=== PATIENT | female | born 1945 | race Caucasian/White ===

== ENCOUNTER 2017-04-04 21:18 | Emergency (ER) | payer MEDICARE ==
[~2017-04-04] VITALS: Ht 170.2 cm; Wt 65.9 kg
[2017-04-04 21:25] VITALS: BP 148/77; PULSE 99; RESP 16; O2SAT 97
--- NOTE | 2017-04-04 22:05 | DRSVH ---
PROCEDURE: X-RAY LEFT KNEE, THREE VIEWS ([id number]) INDICATIONS: Fall/pain TECHNIQUE: 3 views of the knee were acquired. COMPARISON: None. FINDINGS: Bones: No fractures or dislocations. No suspicious bony lesions. 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 Soft tissues: No joint effusion. No suspicious soft tissue calcifications. IMPRESSION: No fracture. No acute osseous lesion. If there are persistent symptoms or clinical susp icion for pathology, then repeat radiographs or advanced imaging (CT, MRI or bone scan) should be con sidered for further evaluation. Dictated by: Odilia Patel MD, PhD on 04/04/2017 at 22:03 Approved by: Odilia Patel MD, PhD on 04/04/2017 at 22:04
--- NOTE | 2017-04-05 01:16 | ED.REPORT ---
HPI-General Illness Date of Service Apr 05, 2017 ED Provider: Brock Love MD A 71 year old female with no pertinent medical history presents to the ED complaining of left knee pain secondary to a knee injury that occurred at 1200 today. Patient reportedly tripped while on a flight of stairs and bent her left knee backwards. The throbbing pain in her knee has been constant since onset and she experiences pain when bearing weight on the affected extremity. The patient is currently expressing concern for a torn ligament/tendon. She did not fall and hit her head, denies any other injuries. She denies any head injury, LOC, nausea, vomiting, fever, chills, SOB, chest pain, or abdominal pain. Nursing Notes Stated Complaint: LEFT KNEE INJURY Chief Complaint: Extremity Trauma Nursing Notes Reviewed: Yes Allergies: Coded Allergies: iodine (Verified Allergy, Severe, Hives, 04/04/17) ether (Verified Allergy, Mild, 04/04/17) Uncoded Allergies: SULFA (Allergy, Unknown, 04/04/17) General Time Seen by MD: 00:45 Chief Complaint Other (Knee injury) Hx Obtained From: Patient Arrived By: Walk-in Sudden in Onset?: Yes Onset Occurred: 5 - 8 hours ago Symptom Duration: Since onset Caused by: Accidental Location: : Knee left Quality: Painful Radiation: : Does not radiate Severity: Maximum: Moderate Associated with: Denies: Abdominal pain, Chest pain, Fever, Headache, Nausea, Numb extremities, Shortness of breath, Vomiting, Weak extremity, Weakness Pertinent Negative: Pt denies other symptoms Exacerbated by: Moving affected area Recent Healthcare: No recent doctor visit, No recent hospitalization Past Medical History Past Medical History None reported. Past Surgical History None reported. Smoking History Unknown if Ever Smoker Social History Other Social History: Good social support, , Local resident Ambulatory Status Independent Review of Systems Full Review of Systems Constitutional: Denies: Chills, Fever Respiratory: Denies: Shortness of breath Cardiovascular: Denies: Chest pain GI: Denies: Abdominal pain, Nausea, Vomiting Musculoskeletal: Reports: Joint pain (left knee), Joint swelling (left knee) Neurologic: Denies: Change LOC, Headache, Numbness, Weakness Complete sys rev & neg: except as marked. Physical Exam General: Well appearing, no acute distress HEENT: mucous membranes moist Pulm: Speaking comfortably with unlabored respirations, no respiratory distress Card: Regular rate, good peripheral perfusion Abd: Soft, nontender, nondistended Skin: Warm and dry, no rashes or pallor appreciated Psych: Appropriate mood and affect. Behavior appears normal. Neuro: AOx3, strength and sensation to light touch grossly intact throughout. Extremities: Tenderness over the left knee. Varus and valgus stress test negative. Anterior and posterior drawer negative. Neurovascularly intact. Vital Signs Vital Signs Date Time Temp Pulse Resp B/P Pulse Ox O2 Delivery O2 Flow Rate FiO2 04/04/17 21:25 36.6 99 16 148/77 97 Room Air Interpretation & Diagnostics X-Ray Interpretation Xray Interpretation: IMPRESSION: No fracture. No acute osseous lesion. If there are persistent symptoms or clinical suspicion for pathology, then repeat radiographs or advanced imaging (CT, MRI or bone scan) should be considered for further evaluation. Dictated by: Odilia Patel MD, PhD on 04/04/2017 at 22:03 X-Ray Ordered: Knee left Interpretation / Wet Read by: Interpret - Radiologist Re-Eval/Medical Decision Med Decision/Clinical Course 71-year-old female presenting for evaluation of left knee pain after injuring it while losing her balance on the stairs earlier today. No other injuries. X- ray negative for fracture. Neurovascular exam intact, including distal to the injury. No significant tenderness with varus or valgus stress, negative anterior and posterior drawer tests. Joint seems to be stable at this time. Reasonable to discharge home with careful return precautions, knee immobilizer, and PCP follow-up. Patient agreeable to the plan as stated, no further questions. Time of Eval: 01:22 Patient Status: Condition improved Re-Evaluation/Progress Note: Patient is re-evaluated. All questions about the treatment plan are addressed. She agrees to follow up with her PCP for further evaluation this week. Patient is agreeable to discharge at this time. Counseled Regarding: Diagnosis, Need for follow-up, When/why to return to ED Discharge & Departure Primary Impression: Knee injury Encounter type: initial encounter Laterality: left Qualified Code: S89.92XA - Unspecified injury of left lower leg, initial encounter Disposition: Home Discharge Condition Condition: Improved Patient Instructions: Knee Sprain (ED) Additional Instructions: Thank you for trusting us with your care this evening. Your X-ray was negative for fracture and your results are reassuring that there is no acute/emergent cause for concern at this time. Your pain should resolve within the next few weeks or so. Please schedule a follow up appointment with your primary care physician in the next 2-3 for a recheck and possible MRI scan. Make sure to keep the leg elevated to prevent swelling. Use ice intermittently every 3 hours to help prevent swelling. Keep the knee immbolized in the brace until you are able to follow-up. Take 1-2 200mg of ibuprofen every 6-8 hours as needed for pain. Please return to the emergency department for any new or worsening symptoms including any headache, nausea, vomiting, numbness/tingling/weakness in the leg , worsening pain or swelling. Referrals: [facility] Scribe Attestation Portions of this note were transcribed by Wyatt Sim. I, Dr. Love personally performed the history, physical exam and medical decision-making; I reviewed and confirmed the accuracy of the information in the transcribed note. Signed by: Sowmya Torre, 04/05/17 0146. Brock Love MD Apr 05, 2017 01:16 WYATT SIM Apr 05, 2017 01:22
== END 2017-04-05 01:48 | disposition home or self-care (01) ==
LOC: SED 21:18
DX: S89.92XA Unspecified injury of left lower leg, initial encounter (principal); W18.49XA Other slipping, tripping and stumbling without falling, initial encounter; Y93.01 Activity, walking, marching and hiking; Y99.8 Other external cause status; Y92.89 Other specified places as the place of occurrence of the external cause; Z88.2 Allergy status to sulfonamides; Z88.8 Allergy status to other drugs, medicaments and biological substances